=== PATIENT | male | born 1960 | race Hispanic/Latino ===

== ENCOUNTER → 2018-10-09 | Day surgery (SDC) | payer BC ==
[2018-10-06 17:00] LABS: BASOPHILS # (AUTO) 0.1 (0.0-0.1); BASOPHILS % 0.4 % (0.0-1.0); EOSINOPHILS # (AUTO) 0.1 (0.0-0.4); EOSINOPHILS % 0.7 % (0.0-6.0); HEMATOCRIT 44.7 % (38.2-49.6); HEMOGLOBIN 14.2 g/dL (14.0-18.0); LYMPHOCYTES # (AUTO) 2.2 (1.0-3.2); LYMPHOCYTES % 18.9 % (18.0-39.1); MEAN CORPUSCULAR HEMOGLOBIN 24.7 pg (28-32); MEAN CORPUSCULAR HGB CONC 31.8 g/dL (31-35); MEAN CORPUSCULAR VOLUME 77.9 fL (81-99); MONOCYTES # (AUTO) 0.8 (0.2-0.8); MONOCYTES % 7.2 % (4.4-11.3); NEUTROPHILS # (AUTO) 8.3 (2.1-6.9); NEUTROPHILS % 72.4 % (38.7-80.0); PLATELET COUNT 250 x10e3/uL (140-360); RED BLOOD COUNT 5.74 x10e6/uL (4.3-5.7); RED CELL DISTRIBUTION WIDTH 14.1 % (11.7-14.4)
[2018-10-06 17:22] LABS: ALANINE AMINOTRANSFERASE 23 IU/L (0-55); ALBUMIN/GLOBULIN RATIO 1.2 (0.8-2.0); ALKALINE PHOSPHATASE 73 IU/L (40-150); ANION GAP 16.4 mmol/L (8-16); BLOOD UREA NITROGEN 13 mg/dL (7-26); BUN/CREATININE RATIO 15 (6-25); CALCIUM 9.5 mg/dL (8.4-10.2); CARBON DIOXIDE 25 mmol/L (22-29); CHLORIDE 101 mmol/L (98-107); CREATININE, SERUM 0.85 mg/dL (0.72-1.25); EST GLOMERULAR FILTRATION RATE > 60 ML/MIN (60-); GLUCOSE 102 mg/dL (74-118); POTASSIUM 4.4 mmol/L (3.5-5.1); SODIUM 138 mmol/L (136-145)
[~2018-10-09] MED LIST: ACETAMINOPHEN 1000 MG/100 ML 100 ML IV ONE; BUPIVACAINE 0.25%/EPI 30ML SDV INJ ONE; CEFAZOLIN SOD 1 GM VIAL ONE; DEXAMETHASONE SOD PHOS INJ 4 MG/ML VIAL ONE; FENTANYL CITRATE/PF 100MCG/2 ML INJ ONE; LIDOCAINE HCL 1% LOCAL INJ 20 ML VIAL ONE; LIDOCAINE HCL 2% LOCAL INJ 5 ML SDV VIAL INJ ONE; MEPERIDINE HCL INJ 50 MG/ML INJ ONE; MIDAZOLAM HCL 2 MG/2 ML VIAL ONE; ONDANSETRON HCL INJ 2 MG/ML VIAL ONE; PROPOFOL IV EMULSION 10 MG/ML 20 ML VIAL ONE; ROCURONIUM BROMIDE 10 MG/ML 5ML VIAL ONE; SEVOFLURANE INHAL SOLN 250 ML PEN BTL ONE
--- NOTE | 2018-10-09 13:21 | Operative Report ---
DATE OF PROCEDURE: October 09, 2018 PREOPERATIVE DIAGNOSIS: Right inguinal hernia. POSTOPERATIVE DIAGNOSIS: Right inguinal hernia. PROCEDURE PERFORMED: Repair of right inguinal hernia with UltraPro hernia system oval type. DRY PAN FEEDER: LIAM Branham. ESTIMATED BLOOD LOSS: Minimal. DRAINS: None. COMPLICATIONS: None. INDICATIONS AND FINDINGS: The patient is a 57-year-old male who complained of a bulge and increasing pain in the right groin. He is status post repair of left inguinal hernia 20 years ago. INTRAOPERATIVE FINDINGS: The patient had a large lipoma of the cord and a direct defect at the level of the internal ring. There was no femoral herniation. There was no indirect hernia sac. The UltraPro hernia system oval type was deployed. At the end of the procedure, the right testicle was palpated in the anatomic position in the right hemiscrotum. The left testicle was absent. DESCRIPTION OF PROCEDURE: With the patient lying on the operative table in the supine position after administration of general endotracheal anesthesia, he was prepped and draped for inguinal hernia repair. The procedure was begun by giving the patient an ilioinguinal nerve block and an incisional nerve block with 0.25% Marcaine with epinephrine, and then a transverse groin incision was made and deepened through the skin, subcutaneous tissue, Mickey fascia until the external oblique aponeurosis was identified. This was incised along the course of its fibers, transecting the external inguinal ring. Medial and lateral leaves were developed. The cord was mobilized at the level of the pubic tubercle and retracted away from the operative field by a Antelope drain. The cremaster veil was incised. We did not find any indirect hernia sac. We found a large lipoma that was serially clamped and tied off with 2-0 Vicryl. After we did this, we went ahead and incised the transversalis fascia and created a pocket using blunt dissection to accommodate the mesh. There was no femoral herniation. We then placed the UltraPro hernia system oval type in the preperitoneal space, the underlay part of it, and the overlay part of it was placed flat against the inguinal canal floor. A slit was made to accommodate the cord, and then the mesh was secured to the local tissues by a series of interrupted 2-0 Ethibond sutures. The wound was irrigated, bleeding points were cauterized, and then after verification that the sponge and instrument counts were correct, the wound was closed in layers using 2-0 Vicryl for the external oblique aponeurosis, 2-0 plain catgut for the soft tissues, and the skin was closed using donna. During this procedure, the ilioinguinal nerve was sacrificed to prevent neuroma formation. The patient tolerated the procedure well, was taken to the recovery room in stable condition. Job#: [id number]
[2018-10-09 13:30] VITALS: BP 129/80
== END | disposition home or self-care (01) ==
LOC: OR 08:05 → EDBD 08:05
PROVIDERS: ATTEND Surgery
DX: K40.90 Unilateral inguinal hernia, without obstruction or gangrene, not specified as recurrent (principal); D17.6 Benign lipomatous neoplasm of spermatic cord; Z01.810 Encounter for preprocedural cardiovascular examination; Z01.812 Encounter for preprocedural laboratory examination
CPT/HCPCS: 36415; 49505; 80053; 85025; 88304; 93005; C1781; J0131; J0690; J1100; J2001; J2175; J2250; J2405; J2704